=== PATIENT | female | born 1990 | race Caucasian/White ===

== ENCOUNTER 2017-01-18 14:25 | Emergency (ER) | payer OTHER ==
[2017-01-18 18:44] VITALS: BP 127/77
== END 2017-01-18 18:44 | disposition home or self-care (01) ==
LOC: ED 14:25
DX: S42.411A Displaced simple supracondylar fracture without intercondylar fracture of right humerus, initial encounter for closed fracture (principal); R07.89 Other chest pain; W18.30XA Fall on same level, unspecified, initial encounter; Y93.89 Activity, other specified; Y99.8 Other external cause status; Y92.89 Other specified places as the place of occurrence of the external cause
CPT/HCPCS: Q0092